=== PATIENT | male | born 1995 | race Hispanic/Latino ===

== ENCOUNTER 2016-09-06 18:34 | Emergency (ER) | payer SELFPAY ==
[2016-09-06 18:41] VITALS: BMI 22.3
[2016-09-06 18:45] VITALS: BP 120/77; PULSE 75; RESP 16; TEMP 98.2; O2SAT 98
--- NOTE | 2016-09-06 18:53 | ED PDOC ---
Arrival/HPI - General Historian: Patient <MaurisioMonica A - Last Filed: 09/06/16 20:16> <Miguel Gonzales - Last Filed: 09/08/16 10:29> - General Chief Complaint: Lower Extremity Problem/Injury Time Seen by Provider: 09/06/16 18:47 - History of Present Illness Narrative History of Present Illness (Text): 09/06/16 18:49 21yo male with history of anxiety present with complaint of right foot pain. Describes pain as tingling. States pain started when he woke up from sleep yesterday. Did not take any medication for the pain. Denies trauma, any other complaint, (Monica Forde A) Past Medical History - Provider Review Nursing Documentation Reviewed: Yes - Infectious Disease Hx of Infectious Diseases: None - Tetanus Immunization Tetanus Immunization: Unknown - Past Medical History Past Medical History: No Previous - Psychiatric Hx Depression: No Hx Emotional Abuse: No Hx Physical Abuse: No Hx Substance Use: No - Past Surgical History Past Surgical History: No Previous - Suicidal Assessment Feels Threatened In Home Enviroment: No <MaurisioMonica A - Last Filed: 09/06/16 20:16> Family/Social History - Physician Review Nursing Documentation Reviewed: Yes Family/Social History: Unknown Family HX Smoking Status: Never Smoked Hx Alcohol Use: Yes Frequency of alcohol use: Socially Hx Substance Use: No <MaurisioMonica A - Last Filed: 09/06/16 20:16> Allergies/Home Meds <MaurisioMonica A - Last Filed: 09/06/16 20:16> <Miguel Gonzales - Last Filed: 09/08/16 10:29> Allergies/Adverse Reactions: Allergies No Known Allergies Allergy (Verified 01/10/12 20:22) Review of Systems - Physician Review All systems were reviewed & negative as marked: Yes - Review of Systems Constitutional: Normal Eyes: Normal ENT: Normal Respiratory: Normal Cardiovascular: Normal Gastrointestinal: Normal Genitourinary Male: Normal Musculoskeletal: Arthralgias (Right foot pain) Skin: Normal Neurological: Normal Endocrine: Normal Hemo/Lymphatic: Normal Psychiatric: Normal <MaurisioMonica A - Last Filed: 09/06/16 20:16> Physical Exam Vital Signs Reviewed: Yes Temperature: Afebrile Blood Pressure: Normal Pulse: Regular Respiratory Rate: Normal Appearance: Positive for: Well-Appearing, Non-Toxic, Comfortable Pain Distress: None Mental Status: Positive for: Alert and Oriented X 3 - Systems Exam Head: Present: Atraumatic, Normocephalic Pupils: Present: PERRL Extroacular Muscles: Present: EOMI Conjunctiva: Present: Normal Mouth: Present: Moist Mucous Membranes Neck: Present: Normal Range of Motion Respiratory/Chest: Present: Clear to Auscultation, Good Air Exchange. No: Respiratory Distress, Accessory Muscle Use Cardiovascular: Present: Regular Rate and Rhythm, Normal S1, S2. No: Murmurs Abdomen: Present: Normal Bowel Sounds. No: Tenderness, Distention, Peritoneal Signs Back: Present: Normal Inspection Upper Extremity: Present: Normal Inspection. No: Cyanosis, Edema Lower Extremity: Present: Normal Inspection, NORMAL PULSES, Normal ROM, Neurovascularly Intact. No: Edema, CALF TENDERNESS, Cyanosis, Tenderness, Swelling, Erythema, Deformity, Temperature Abnormalties Neurological: Present: GCS=15, CN II-XII Intact, Speech Normal Skin: Present: Warm, Dry, Normal Color. No: Rashes Psychiatric: Present: Alert, Oriented x 3, Normal Insight, Normal Concentration <Monica Forde A - Last Filed: 09/06/16 20:16> Medical Decision Making <Monica Forde A - Last Filed: 09/06/16 20:16> <Miguel Gonzales - Last Filed: 09/08/16 10:29> ED Course and Treatment: 09/06/16 20:16 Right foot xray - No acute finding Result was DW the pt. He was referred to a web site designer. He was ambulatory with normal gait. Rx of ibuprofen 600mg given. (Monica Forde A) - RAD Interpretation Radiology Orders: 09/06/16 18:47 FOOT RIGHT 3 VIEWS ROUTINE [RAD] Stat - Medication Orders Current Medication Orders: Discontinued Medications Ibuprofen (Motrin Tab) 600 mg PO STAT STA Stop: 09/06/16 18:48 Last Admin: 09/06/16 19:30 Dose: 600 mg - PA / TERRAPIN FISHER / Resident Statement MD/DO has reviewed & agrees with the documentation as recorded. <Miguel Gonzales - Last Filed: 09/08/16 10:29> Disposition/Present on Arrival - Present on Arrival Any Indicators Present on Arrival: No History of DVT/PE: No History of Uncontrolled Diabetes: No Urinary Catheter: No History of Decub. Ulcer: No History Surgical Site Infection Following: None - Disposition Have Diagnosis and Disposition been Completed?: Yes Disposition Time: 19:20 Patient Plan: Discharge <Monica Forde - Last Filed: 09/06/16 20:16> <Miguel Gonzales - Last Filed: 09/08/16 10:29> - Disposition Diagnosis: Foot pain Disposition: HOME/ ROUTINE Condition: STABLE Discharge Instructions (ExitCare): Arthralgia (ED) Additional Instructions: Follow up with your Doctor/Irrigator Head Return to ED for any new or worsening symptoms Prescriptions: Ibuprofen [Motrin Tab] 600 mg PO Q6 #20 tab Referrals: PCP,SHAI [Primary Care Provider] - Follow up with primary Dilip Jones DPM [Staff Provider] - Follow up with primary
--- NOTE | 2016-09-07 08:26 | RAD ---
PROCEDURE: Right Foot Radiographs. HISTORY: foot pain COMPARISON: None. FINDINGS: BONES: Normal. No fracture. JOINTS: Normal. SOFT TISSUES: Normal. OTHER FINDINGS: None. IMPRESSION: Normal right foot radiographs.
== END 2016-09-06 19:34 | disposition home or self-care (01) ==
LOC: ED 18:34
DX: M79.671 Pain in right foot (principal)

== ENCOUNTER 2016-09-27 10:13 | Emergency (ER) | payer SELFPAY ==
[2016-09-27 10:14] VITALS: BMI 22.3
[2016-09-27 10:23] VITALS: RESP 16; TEMP 98.1
--- NOTE | 2016-09-27 10:53 | ED PDOC ---
Arrival/HPI - General Chief Complaint: Psychiatric Evaluation Time Seen by Provider: 09/27/16 10:45 Historian: Patient - History of Present Illness Narrative History of Present Illness (Text): 09/27/16 10:47 This 21 yo male with a pmh panic disorder, presents to this ED with mother c/o intermittent panic attack for 6 years. Mother stated patient has seen a psychiatrist in the past, but it was over 5 years ago. Denies other complains. Denies HI, SI, paranoia, or hallucination. Denies substance abuse or alcohol. Patient is currently asymptomatic in ED, but mother requested medication for panic attack. Patient and mother do not wish to be admitted in hospital, but he wants a referral for Mental Health Clinic Time/Duration: Other (6 years) Symptom Course: Intermittent Context: Home Past Medical History - Provider Review Nursing Documentation Reviewed: Yes - Infectious Disease Hx of Infectious Diseases: None - Tetanus Immunization Tetanus Immunization: Unknown - Past Medical History Past Medical History: No Previous - Cardiac Hx Cardiac Disorders: No - Pulmonary Hx Respiratory Disorders: No - Neurological Hx Neurological Disorder: No - HEENT Hx HEENT Disorder: No - Renal Hx Renal Disorder: No - Endocrine/Metabolic Hx Endocrine Disorders: No - Hematological/Oncological Hx Blood Disorders: No - Integumentary Hx Dermatological Disorder: No - Musculoskeletal/Rheumatological Hx Musculoskeletal Disorders: No - Gastrointestinal Hx Gastrointestinal Disorders: No - Genitourinary/Gynecological Hx Genitourinary Disorders: No - Psychiatric Hx Anxiety: Yes Hx Depression: No Hx Emotional Abuse: No Hx Panic Disorder: Yes Hx Physical Abuse: No Hx Substance Use: No - Past Surgical History Past Surgical History: No Previous - Suicidal Assessment Feels Threatened In Home Enviroment: No Family/Social History - Physician Review Nursing Documentation Reviewed: Yes Family/Social History: No Known Family HX Smoking Status: Never Smoked Hx Alcohol Use: Yes Frequency of alcohol use: Socially Hx Substance Use: No Allergies/Home Meds Allergies/Adverse Reactions: Allergies No Known Allergies Allergy (Verified 09/27/16 10:17) Review of Systems - Review of Systems Constitutional: Normal. absent: Fatigue, Weight Change, Fevers Eyes: Normal ENT: Normal Respiratory: Normal. absent: SOB, Cough Cardiovascular: Normal. absent: Chest Pain, Palpitations Gastrointestinal: Normal. absent: Abdominal Pain, Nausea, Vomiting Genitourinary Male: Normal Musculoskeletal: Normal. absent: Back Pain Skin: Normal. absent: Rash Neurological: Normal. absent: Headache, Dizziness Endocrine: Normal Hemo/Lymphatic: Normal Psychiatric: Anxiety. absent: Depression, Suicidal Ideation Physical Exam Vital Signs Temp Pulse Resp BP Pulse Ox 09/27/16 10:18 98.1 F 76 16 112/70 99 Temperature: Afebrile Blood Pressure: Normal Pulse: Regular Respiratory Rate: Normal Appearance: Positive for: Well-Appearing, Non-Toxic, Comfortable Pain Distress: None Mental Status: Positive for: Alert and Oriented X 3 - Systems Exam Head: Present: Atraumatic, Normocephalic Pupils: Present: PERRL Extroacular Muscles: Present: EOMI Conjunctiva: Present: Normal Mouth: Present: Moist Mucous Membranes Neck: Present: Normal Range of Motion Respiratory/Chest: Present: Clear to Auscultation, Good Air Exchange. No: Respiratory Distress, Accessory Muscle Use Cardiovascular: Present: Regular Rate and Rhythm, Normal S1, S2. No: Murmurs Abdomen: Present: Normal Bowel Sounds. No: Tenderness, Distention, Peritoneal Signs Back: Present: Normal Inspection Upper Extremity: Present: Normal Inspection, Normal ROM, NORMAL PULSES. No: Cyanosis, Edema Lower Extremity: Present: Normal Inspection, NORMAL PULSES, Normal ROM. No: Edema Neurological: Present: GCS=15, CN II-XII Intact, Speech Normal Skin: Present: Warm, Dry, Normal Color. No: Rashes Psychiatric: Present: Alert, Oriented x 3, Normal Insight, Normal Concentration , Normal Affect, Normal Mood. No: Anxious, Agitated, Depressed Mood, Suicidal Ideation, Homicidal Ideation, Delusional, Hallucinations, Intoxicated, Lethargic Medical Decision Making ED Course and Treatment: 09/27/16 12:35 Re-evaluation. Patient feels better. Discussed results and plan with patient who expresses understanding. All questions answered and there is agreement with the plan to discharge home with instructions. Patient stable for discharge. Return if symptoms persist or worsen. Patient refused to be seen by PES screener. He is requesting referral for mental health clinic. Patient remained asymptomatic during the course of ED visit. Denies SI or HI Re-evaluation Time: 12:35 Reassessment Condition: Re-examined, Improved - RAD Interpretation Narrative RAD Interpretations (Text): 09/27/16 12:40 CXR: NAD Radiology Orders: 09/27/16 10:45 CHEST PORTABLE [RAD] Stat - EKG Interpretation Interpreted by ED Physician: Yes (NSR @ 64 bpm. Normal interval. No ST changes ) Type: 12 lead EKG Comparison: No previous EKG avail. - Medication Orders Current Medication Orders: Discontinued Medications Hydroxyzine Pamoate (Vistaril) 25 mg PO STAT STA PRN Reason: Protocol Stop: 09/27/16 10:47 Last Admin: 09/27/16 11:14 Dose: 25 mg Disposition/Present on Arrival - Present on Arrival Any Indicators Present on Arrival: No History of DVT/PE: No History of Uncontrolled Diabetes: No Urinary Catheter: No History of Decub. Ulcer: No History Surgical Site Infection Following: None - Disposition Have Diagnosis and Disposition been Completed?: Yes Diagnosis: Panic attack Disposition: HOME/ ROUTINE Disposition Time: 12:36 Patient Plan: Discharge Condition: IMPROVED Discharge Instructions (ExitCare): Panic Attack (ED) Additional Instructions: Call private doctor for follow up visit in 1-2 days. Also, call Mental Health Clinic for revaluation. Take medication as needed. return to emergency if symptoms worsen. Prescriptions: Hydroxyzine Pamoate [Vistaril] 25 mg PO TID PRN #30 capsule PRN Reason: Anxiety Referrals: PCP,NO [Primary Care Provider] - Follow up with primary [facility] [Outside] - Follow up with primary [facility] [Outside] - Follow up with primary [facility] [Outside] - Follow up with primary Forms: WORK NOTE
--- NOTE | 2016-09-27 11:01 | RAD ---
HISTORY: anxiety, cough COMPARISON: Comparison chest 01/10/2012 FINDINGS: LUNGS: No active pulmonary disease. PLEURA: No significant pleural effusion identified, no pneumothorax apparent. CARDIOVASCULAR: Normal. OSSEOUS STRUCTURES: No significant abnormalities. VISUALIZED UPPER ABDOMEN: Normal. OTHER FINDINGS: None. IMPRESSION: No active disease.
[2016-09-27 12:51] VITALS: BP 113/72; PULSE 70; O2SAT 98
--- NOTE | 2016-09-27 22:21 | CARD ---
APPROVED REPORT EKG Measurement Heart [id number] <Conclusion> Normal sinus rhythm Normal ECG
== END 2016-09-27 12:53 | disposition home or self-care (01) ==
LOC: ED 10:13
DX: F41.0 Panic disorder [episodic paroxysmal anxiety] (principal)
CPT/HCPCS: 71010; 93005; 99283; Q0177

== ENCOUNTER 2018-03-26 13:37 | Emergency (ER) | payer MEDICAID, OTHER ==
[2018-03-26 14:10] VITALS: RESP 18; TEMP 98.4; BMI 24.4
--- NOTE | 2018-03-26 14:42 | ED PDOC ---
Arrival/HPI <Zulma Russell - Last Filed: 03/26/18 15:50> - General Historian: Patient - History of Present Illness Narrative History of Present Illness (Text): 03/26/18 14:41 Patient is a 22 year old male with no significant past medical history who presents with one day history of lower abdominal pain and burning on urination. Patient states that this has never happened to him before. Abdominal pain is constant and worse with movement. Patient reports having unprotected sex recently and is requesting STD testing. Denies any penile discharge, nausea/vomiting, fevers, cp, palpitations, sob, changes in bowel habits. Allergies: NKDA Medications: Denies Medical History: Denies Surgical History: Denies Social History: Drinks alcohol socially, denies tobacco or drug use Family History: Diabetes Mellitus Time/Duration: 24 hours Symptom Onset: Sudden Symptom Course: Unchanged Quality: Burning Severity Level: 8 <Brigitte Mcclelland - Last Filed: 03/26/18 17:11> - General Chief Complaint: Abdominal Pain Time Seen by Provider: 03/26/18 14:41 Past Medical History - Provider Review Nursing Documentation Reviewed: Yes - Infectious Disease Hx of Infectious Diseases: None - Tetanus Immunization Tetanus Immunization: Unknown - Past Medical History Past Medical History: No Previous - Cardiac Hx Cardiac Disorders: No - Pulmonary Hx Respiratory Disorders: No - Neurological Hx Neurological Disorder: No - HEENT Hx HEENT Disorder: No - Renal Hx Renal Disorder: No - Endocrine/Metabolic Hx Endocrine Disorders: Yes - Hematological/Oncological Hx Blood Disorders: No - Integumentary Hx Dermatological Disorder: No - Musculoskeletal/Rheumatological Hx Musculoskeletal Disorders: No - Gastrointestinal Hx Gastrointestinal Disorders: No - Genitourinary/Gynecological Hx Genitourinary Disorders: No - Psychiatric Hx Psychophysiologic Disorder: Yes Hx Anxiety: Yes Hx Panic Disorder: Yes Hx Substance Use: No - Past Surgical History Past Surgical History: No Previous - Suicidal Assessment Feels Threatened In Home Enviroment: No <Brigitte Mcclelland - Last Filed: 03/26/18 17:11> Family/Social History - Physician Review Nursing Documentation Reviewed: Yes Family/Social History: Diabetes Smoking Status: Never Smoked Hx Alcohol Use: Yes Frequency of alcohol use: Socially Hx Substance Use: No Hx Substance Use Treatment: No <Brigitte Mcclelland - Last Filed: 03/26/18 17:11> Allergies/Home Meds <Zulma Russell - Last Filed: 03/26/18 15:50> <Brigitte Mcclelland - Last Filed: 03/26/18 17:11> Allergies/Adverse Reactions: Allergies No Known Allergies Allergy (Verified 03/26/18 14:10) Home Medications: Home Meds Medication Instructions Recorded Confirmed No Known Home Med 03/26/18 03/26/18 Review of Systems - Physician Review All systems were reviewed & negative as marked: Yes - Review of Systems Constitutional: Normal. absent: Fatigue, Fevers Eyes: Normal. absent: Vision Changes ENT: Normal. absent: Hearing Changes Respiratory: Normal. absent: SOB, Cough, Wheezing Cardiovascular: Normal. absent: Chest Pain, Palpitations Gastrointestinal: Abdominal Pain. absent: Stool Changes, Constipation, Diarrhea, Nausea, Vomiting Genitourinary Male: Dysuria. absent: Hematuria Musculoskeletal: Normal Skin: Normal. absent: Rash, Pruritis Neurological: Normal. absent: Headache, Dizziness <Brigitte Mcclelland - Last Filed: 03/26/18 17:11> Physical Exam Vital Signs Temp Pulse Resp BP Pulse Ox 03/26/18 14:09 98.4 F 90 18 128/66 100 <Zulma Russell - Last Filed: 03/26/18 15:50> Vital Signs Reviewed: Yes Vital Signs Temp Pulse Resp BP Pulse Ox 03/26/18 14:09 98.4 F 90 18 128/66 100 Temperature: Afebrile Blood Pressure: Normal Pulse: Regular Respiratory Rate: Normal Appearance: Positive for: Well-Appearing, Non-Toxic, Comfortable Pain Distress: None Mental Status: Positive for: Alert and Oriented X 3 - Systems Exam Head: Present: Atraumatic, Normocephalic Pupils: Present: PERRL Extroacular Muscles: Present: EOMI Conjunctiva: Present: Normal Mouth: Present: Moist Mucous Membranes Neck: Present: Normal Range of Motion Respiratory/Chest: Present: Clear to Auscultation, Good Air Exchange. No: Respiratory Distress, Accessory Muscle Use Cardiovascular: Present: Regular Rate and Rhythm, Normal S1, S2. No: Murmurs Abdomen: Present: Tenderness (Suprapubic tenderness), Normal Bowel Sounds. No: Distention, Peritoneal Signs Genitourinary Male: Present: Normal External Genitalia. No: Lesions, Penile Discharge, Penile Swelling, Erythema Back: No: CVA Tenderness Upper Extremity: Present: Normal Inspection Lower Extremity: Present: Normal Inspection Neurological: Present: GCS=15, CN II-XII Intact Skin: Present: Warm, Dry, Normal Color Psychiatric: Present: Alert, Oriented x 3 <Brigitte Mcclelland - Last Filed: 03/26/18 17:11> Medical Decision Making ED Course and Treatment: 03/26/18 15:50 22 year old male presents to the Emergency department complaining of lower abdominal pain and dysuria, In agreement with resident note which contains more details about the patient. Patient seen and evaluated with resident. Came up with plan and treatment together. <Zulma Russell - Last Filed: 03/26/18 15:50> ED Course and Treatment: 03/26/18 15:29 Patient seen and examined at bedside. Patient reports having lower abdominal pain with dysuria x 1 day. On exam, suprapubic tenderness. Will order GC/Chlamydia, urinalysis and urine culture. 03/26/18 16:30 UA reviewed. Will order Azithromycin 1000mg PO x 1, Rocephin 250mg IM x 1. Patient instructed to refrain from sex until negative GC/CH result. <Brigitte Mcclelland - Last Filed: 03/26/18 17:11> - PA / [employer]PER[employer]OR [employer] / Resident Statement BROOKE has reviewed & agrees with the documentation as recorded. / has examined the patient and agrees with the treatment plan. - Scribe Statement The provider has reviewed the documentation as recorded by the Scribe Deangelo Woo. All medical record entries made by the Dwayneibe were at my direction and personally dictated by me. I have reviewed the chart and agree that the record accurately reflects my personal performance of the history, physical exam, medical decision making, and the department course for this patient. I have also personally directed, reviewed, and agree with the discharge instructions and disposition. <Zulma Russell - Last Filed: 03/26/18 15:50> Disposition/Present on Arrival <Zulma Russell - Last Filed: 03/26/18 15:50> - Present on Arrival Any Indicators Present on Arrival: No History of DVT/PE: No History of Uncontrolled Diabetes: No Urinary Catheter: No History of Decub. Ulcer: No History Surgical Site Infection Following: None - Disposition Have Diagnosis and Disposition been Completed?: Yes Disposition Time: 16:33 Patient Plan: Discharge <Brigitte Mcclelland - Last Filed: 03/26/18 17:11> - Disposition Diagnosis: Concern about STD in male without diagnosis, Screen for STD (sexually transmitted disease) Disposition: HOME/ ROUTINE Patient Problems: Current Active Problems Problem Status Onset Concern about STD in male without diagnosis Acute Screen for STD (sexually transmitted disease) Acute Condition: GOOD Discharge Instructions (ExitCare): Screening for Sexually Transmitted Infections Additional Instructions: - Please refrain from intercourse until negative STD result - Follow up with PMD within 2-3 days - If symptoms worsen, return the emergency department Forms: [employer] (Telugu)
[2018-03-26 15:53] LABS: PH,URINE 7.5 (4.7-8.0); URINE BILIRUBIN NEGATIVE (NEGATIVE); URINE BLOOD TRACE-LYSED (NEGATIVE); URINE GLUCOSE (UA) NEGATIVE (NEGATIVE); URINE LEUKOCYTE ESTERASE NEGATIVE Leu/uL (NEGATIVE); URINE PROTEIN NEGATIVE mg/dL (<30 mg/dL); URINE UROBILINOGEN 0.2 E.U./dL (<1 E.U./dL)
[2018-03-26 15:54] LABS: URINE APPEARANCE CLEAR (CLEAR); URINE COLOR YELLOW (YELLOW)
[2018-03-26 16:03] LABS: URINE EPITHELIAL CELLS 0 - 2 /hpf (0-5); URINE RBC 0 - 2 /hpf (0-2)
[2018-03-26 16:04] LABS: URINE BACTERIA FEW (NEG)
[2018-03-26] MEDS ORDERED: cefTRIAXone (Rocephin) 250 mg Inj IM STA (16:27)
[2018-03-26 21:17] VITALS: BP 126/77; PULSE 88; O2SAT 99
== END 2018-03-26 17:15 | disposition home or self-care (01) ==
LOC: ED 13:37
DX: Z11.3 Encounter for screening for infections with a predominantly sexual mode of transmission (principal)
CPT/HCPCS: 81001; 87086; 87491; 87591; 96372; 99283; J0696